=== PATIENT | male | born 1980 | race Two or more races ===

== ENCOUNTER 2018-09-06 18:40 | Emergency (ER) | payer MEDICAID ==
[~2018-09-06] VITALS: Ht 175.3 cm; Wt 113.4 kg
[2018-09-06 20:11] VITALS: BP 161/99
== END 2018-09-06 22:04 | disposition home or self-care (01) ==
LOC: ER 18:45
DX: S00.03XA Contusion of scalp, initial encounter (principal); F17.210 Nicotine dependence, cigarettes, uncomplicated; F12.10 Cannabis abuse, uncomplicated; W22.8XXA Striking against or struck by other objects, initial encounter; Y93.89 Activity, other specified; Y99.8 Other external cause status; Y92.89 Other specified places as the place of occurrence of the external cause
CPT/HCPCS: 70450; 72125; 94761

== ENCOUNTER 2019-06-08 18:04 | Emergency (ER) | payer MEDICAID ==
[~2019-06-08] VITALS: Ht 175.3 cm; Wt 111.1 kg
[2019-06-08 22:14] VITALS: BP 136/83
== END 2019-06-08 22:13 | disposition home or self-care (01) ==
LOC: ER 18:04
DX: S39.012A Strain of muscle, fascia and tendon of lower back, initial encounter (principal); S16.1XXA Strain of muscle, fascia and tendon at neck level, initial encounter; S00.03XA Contusion of scalp, initial encounter; V49.9XXA Car occupant (driver) (passenger) injured in unspecified traffic accident, initial encounter; Y93.89 Activity, other specified; Y92.488 Other paved roadways as the place of occurrence of the external cause; Y99.8 Other external cause status
CPT/HCPCS: 70450; 72125; 72128; 72131

== ENCOUNTER 2023-01-19 11:55 | Emergency (ER) | payer MEDICAID, OTHER ==
[~2023-01-19] VITALS: Ht 175.3 cm; Wt 114.2 kg
[2023-01-19 13:15] LABS: Basophils # (auto) 0.1 10 ^3/uL (0-0.2); Basophils % (auto) 1.1 % (0.0-2.0); Eosinophils # (auto) 0.2 10 ^3/uL (0-0.8); Eosinophils % (auto) 2.6 % (0.0-7.0); Hematocrit 49.1 % (41.0-53.0); Lymphocytes # (auto) 3.4 10 ^3/uL (0.4-5.4); Lymphocytes % (auto) 38.2 % (10.0-50.0); Mean Corpuscular Hemoglobin 32.2 pg (28.0-32.0); Mean Corpuscular Hgb Conc. 34.5 g/dL (32.0-36.0); Mean Corpuscular Volume 93.2 fL (80.0-100.0); Monocytes # (auto) 0.8 10 ^3/uL (0-1.3); Monocytes % (auto) 8.5 % (0.0-12.0); Neutrophils # (auto) 4.4 10 ^3/uL (1.6-8.6); Neutrophils % (auto) 49.6 % (37.0-80.0); Nucleated Red Blood Cells % 0.1 %; Red Blood Cells 5.27 10^6/uL (4.5-5.90); Red Cell Distribution Width 12.9 % (11.8-14.3); White Blood Cell 8.9 10^3/uL (4.4-10.8)
[2023-01-19 13:47] LABS: Urine Bacteria FEW /hpf (None Seen); Urine Blood Negative /uL (Negative); Urine Clarity Clear (Clear); Urine Color Straw (Yellow); Urine Protein, UAD Negative (Negative); Urine Specific Gravity 1.036 (1.001-1.035); Urine Urobilinogen Normal (Negative); Urine WBC 7 /hpf (0 - 3); Urine pH 5.5 (5.0-8.0)
[2023-01-19 13:48] LABS: Alanine Aminotransferase 154 U/L (7-40); Alkaline Phosphatase 127 U/L (46-116); Anion Gap 7.5 (5-15); Aspartate Aminotransferase 74 U/L (13-40); BUN/Creatinine Ratio 7.3 (10.0-20.0); Blood Urea Nitrogen 7 mg/dL (9-23); Calcium 9.7 mg/dL (8.5-10.1); Carbon Dioxide 24.5 mmol/L (20-30); Chloride 102 mmol/L (98-107); Glucose 312 mg/dL (74-106); Potassium 4.1 mmol/L (3.5-5.1); Sodium 134 mmol/L (136-145)
[2023-01-19 13:49] LABS: Albumin 4.5 g/dL (3.2-4.8); Bilirubin, Total 0.5 mg/dL (0.2-1.0); Total Protein 7.5 g/dL (5.7-8.2)
[2023-01-19] MEDS ORDERED: cefTRIAXone 1GM/50ML D5W 50 ML IV ONE (14:00)
[2023-01-19] MEDS ORDERED: SODIUM CHLORIDE 0.9% 1,000 ML IV ONE ×3 (16:00→19:00)
[2023-01-19] MEDS ORDERED: IOHEXOL 300 MG/ML 100ML BOTTLE IJ ONE (17:02)
[2023-01-19 17:33] LABS: Lactic Acid w/Reflex 2.2 mmol/L (0.4-2.0)
[2023-01-19] MEDS ORDERED: CEPH500C PO (18:32)
[2023-01-19 21:30] VITALS: BP 145/93; PULSE 80; RESP 17; TEMP 98.2; O2SAT 97
== END 2023-01-19 21:31 | disposition home or self-care (01) ==
LOC: ER 11:55
DX: R73.9 Hyperglycemia, unspecified (principal); N39.0 Urinary tract infection, site not specified; R94.5 Abnormal results of liver function studies; F12.10 Cannabis abuse, uncomplicated
CPT/HCPCS: 36415; 74177; 80053; 81001; 82962; 83605; 85025; 96361; 96365; 99285; J0696; J7030; Q9967